=== PATIENT | male | born 1975 | race Caucasian/White ===

== ENCOUNTER 2020-07-11 19:59 | Emergency (ER) | payer MEDICARE ==
[2020-07-11 20:33] LABS: HEMOGLOBIN 14.8 gm/dl (14.0-17.5); RED BLOOD COUNT 4.64 M/UL (4.20-5.50); WHITE BLOOD COUNT 8.8 K/UL (4.5-11.0)
[2020-07-11 20:56] LABS: BUN/CREATININE RATIO 14 (0-10)
[2020-07-12] MEDS ORDERED: KEFLEX CAP 250250 MG PO (00:24)
== END 2020-07-12 00:25 | disposition home or self-care (01) ==
LOC: ER1 19:59
PROVIDERS: Physician Assistant
DX: S01.112A Laceration without foreign body of left eyelid and periocular area, initial encounter (principal); S16.1XXA Strain of muscle, fascia and tendon at neck level, initial encounter; S06.9X9A Unspecified intracranial injury with loss of consciousness of unspecified duration, initial encounter; Z23 Encounter for immunization; V49.40XA Driver injured in collision with unspecified motor vehicles in traffic accident, initial encounter; Y92.410 Unspecified street and highway as the place of occurrence of the external cause
CPT/HCPCS: 12015; 36415; 70450; 70486; 71045; 71250; 72125; 72170; 73110; 80053; 82550; 82553; 83605; 83874; 84484; 85025; 85610; 85730; 86850; 86900; 86901; 90471; 90715; 99284; G0480